=== PATIENT | female | born 1930 | race Asian ===

== ENCOUNTER 2016-11-14 13:13 | Outpatient (CLI) | payer OTHER, BC | END 2016-11-14 19:11 | disposition home or self-care (01) | LOC: SCT 13:13 | PROVIDERS: ATTEND Psychiatry & Neurology Neurology with Special Qualifications in Child Neurology | DX: G23.8 Other specified degenerative diseases of basal ganglia (principal); R41.3 Other amnesia; G31.9 Degenerative disease of nervous system, unspecified; I70.90 Unspecified atherosclerosis | CPT/HCPCS: 70450-TC ==

== ENCOUNTER 2019-03-31 11:25 | Outpatient (CLI) | payer OTHER | END 2019-03-31 20:48 | disposition home or self-care (01) | LOC: SRD 11:25 | PROVIDERS: ATTEND Internal Medicine | DX: R05 Cough (principal); R09.89 Other specified symptoms and signs involving the circulatory and respiratory systems; I70.0 Atherosclerosis of aorta; Z95.0 Presence of cardiac pacemaker | CPT/HCPCS: 71046-TC ==

== ENCOUNTER 2019-06-16 10:28 | Outpatient (CLI) | payer OTHER | END 2019-06-16 19:19 | disposition home or self-care (01) | LOC: SRD 10:28 | PROVIDERS: ATTEND Internal Medicine | DX: M19.032 Primary osteoarthritis, left wrist (principal); M11.232 Other chondrocalcinosis, left wrist ==

== ENCOUNTER 2020-08-22 10:51 | Outpatient (CLI) | payer OTHER | END 2020-08-22 20:09 | disposition home or self-care (01) | LOC: SRD 10:51 | PROVIDERS: ATTEND Internal Medicine | DX: M79.672 Pain in left foot (principal) ==

== ENCOUNTER 2022-02-10 08:35 | Inpatient (IN) | payer OTHER, MEDICARE ==
[~2022-02-10] VITALS: Ht 157.5 cm; Wt 54.4 kg
--- NOTE | 2022-02-10 08:35 | NUR ---
PT PLACED IN BED 1, DR. HENDERSON ASSESSED PT AT BS.
[2022-02-10 08:41] VITALS: BP_SYST 108
[2022-02-10] MEDS ORDERED: cefTRIAXone 1 GM IVPB PREMIX 50 ML IV ONE (08:45)
[2022-02-10] MEDS ORDERED: NACL 0.9% 1,000 ML IV ONE ×3 (08:45→11:00)
--- NOTE | 2022-02-10 08:52 | NUR ---
BIBA WITH C/C OF CHOKING/ASPIRATING DURING FEEDING FROM [facility]. A/O X 1, ON NRB WITH 100% SAT. PRESENTS WITH HDEZ AND WOUND VAC TO SACRUM.
[2022-02-10 09:10] LABS: BASOPHILS % (AUTO) 0.2 % (0.0-2.0); EOSINOPHILS # (AUTO) 0.4 K/uL (0.0-0.4); HEMATOCRIT 27.2 % (36-48); HEMOGLOBIN 8.7 g/dL (12.0-16.0); LYMPHOCYTES # (AUTO) 4.5 K/uL (1.0-5.5); LYMPHOCYTES % (AUTO) 25.2 % (20.5-51.5); MEAN CORPUSCULAR HEMOGLOBIN 29 pg (27-31); MEAN CORPUSCULAR HGB CONC 32 % (32-36); MEAN CORPUSCULAR VOLUME 92 fL (79.0-98.0); MONOCYTES # (AUTO) 0.5 K/uL (0.0-1.0); MONOCYTES % (AUTO) 3.1 % (1.7-9.3); NEUTROPHILS # (AUTO) 12.5 K/uL (1.8-7.7); NEUTROPHILS % (AUTO) 69.5 % (40.0-70.0); PLATELET COUNT (AUTO) 236 K/uL (130-430); RED BLOOD CELL COUNT(AUTO) 2.95 MIL/uL (4.2-6.2); RED CELL DISTRIBUTION WIDTH 19.3 % (9.0-15.0)
[2022-02-10 09:15] LABS: ANION GAP 12 (5-15); CALCIUM 8.5 mg/dL (8.4-11.0); CHLORIDE 109 mmol/L (98-107); CREATININE 1.25 mg/dL (0.55-1.30); GLUCOSE 171 mg/dL (70-99); POTASSIUM 4.7 mmol/L (3.5-5.1); SODIUM SERUM 139 mmol/L (136-145); UREA NITROGEN, BLOOD 39 mg/dL (8-21)
[2022-02-10 09:24] LABS: ALANINE AMINOTRANSFERASE 61 U/L (12-78); ALBUMIN 1.8 g/dL (3.4-4.8); ASPARTATE AMINOTRANSFERASE 31 U/L (10-37); TOTAL BILIRUBIN 0.1 mg/dL (0.0-1.0)
--- NOTE | 2022-02-10 09:31 | NUR ---
pt BIB ambulance due to poss aspiration. Per EMS during feeding in AM pt "coughed" and then had audible rhonchi. Pt suctioned and placed on NC @ 2L w/ oxygen saturations maintaining in mid to high 90's. Pt noted to have penaloza, wound vac to sacrum, bilateral dressings on feet. Pt reports discomfort to buttocks, turned for comfort. Pt currently laying on gurney w/ no obvious s/sx ditress. Son to bedside. Per son pt ambulatory w/ use of cane in August 2021 (showed video).
--- NOTE | 2022-02-10 10:00 | NUR ---
IV fluids infusing- prehospital line flushed well. Urine collected- and lab bhavna bloodwork. Pt aware of plan of care.
[2022-02-10 10:15] LABS: BILIRUBIN,URINE NEGATIVE (NEGATIVE); BLOOD, URINE 2+ (NEGATIVE); CLARITY/URINE SL CLOUDY (CLEAR); COLOR,URINE YELLOW (YELLOW); GLUCOSE,URINE NEGATIVE (NEGATIVE); KETONES,URINE NEGATIVE (NEGATIVE); LEUKOCYTE ESTERASE ,URINE 3+ (NEGATIVE); NITRITE, URINE NEGATIVE (NEGATIVE); PROTEIN URINE 1+ (NEGATIVE); UROBILINOGEN,URINE 0.2 (0.2-1.0)
[2022-02-10 10:19] LABS: FREE T4 (FREE THYROXINE) 1.3 ng/dl (0.8-1.5); THYROID STIMULATING HORMONE 7.86 uIu/mL (0.36-3.74)
--- NOTE | 2022-02-10 10:25 | NUR ---
Pt w/ no obvious s/sx distress, intermittantly sleeping, arousable to voice. Family remains at bedside, updated regarding plan of care. Will continue to monitor.
[2022-02-10 10:42] LABS: BACTERIA,URINE MANY /HPF (None Seen); MUCUS,URINE 1+ /LPF (None Seen); WBC,URINE 20-50 /HPF (0-3)
--- NOTE | 2022-02-10 10:43 | NUR ---
Admit bed requested Patient will be admitted to care of . Admitted to unit. Tele Diagnosis PNA / Sepsis Inpatient (Yes or No) Yes Observation (Yes or No) No Orientation concerns or request close to nursing station (Yes or No) Yes Covid Status Neg On vent or bipap No Isolation requirements None Needs a sitter No From Home (Yes or if No enter name of facility) [facility] Requires Dialysis (Yes or No) No Med Rec Completed (Yes of No) Yes
[2022-02-10] MEDS ORDERED: ALLO100T PO (11:14)
[2022-02-10] MEDS ORDERED: NOR10 PO (11:14)
[2022-02-10] MEDS ORDERED: ASCO120G2 PO (11:17)
[2022-02-10] MEDS ORDERED: ATEN-41 PO (11:17)
[2022-02-10] MEDS ORDERED: LIP20 PO (11:18)
[2022-02-10] MEDS ORDERED: [UNRECOGNIZED DRUG - CODE] (11:19)
[2022-02-10] MEDS ORDERED: DOCU-156 PO (11:20)
[2022-02-10] MEDS ORDERED: LOVI40 SQ (11:21)
[2022-02-10] MEDS ORDERED: LUTE1CAP5 PO (11:22)
[2022-02-10] MEDS ORDERED: ESCI10TA PO (11:22)
[2022-02-10] MEDS ORDERED: ARGI1POW17 PO (11:26)
[2022-02-10] MEDS ORDERED: LEVO100T9 PO (11:27)
[2022-02-10] MEDS ORDERED: LOSA50TA3 PO (11:28)
[2022-02-10] MEDS ORDERED: PANT20TA2 PO (11:30)
[2022-02-10] MEDS ORDERED: MEMA5TAB PO (11:31)
[2022-02-10] MEDS ORDERED: ZINC50TA69 PO (11:32)
--- NOTE | 2022-02-10 12:08 | NUR ---
Patient will be admitted to care of Farida Cisneros RN. Admitted to unit. Will go to room . Belongings list completed. Complete and up to date summary report printed. SBAR report to be given at bedside with opportunity for questions.
[2022-02-10 12:10] VITALS: BP_SYST 152
--- NOTE | 2022-02-10 12:15 | NUR ---
ADMIT NOTES Received patient from ER, awake, screams when touch, but denies any pain. Patient has sacral wound with wound vac from sandra sawyer.Patient is on o2 4L at this time o2 sat at 95%, has audible wheezing. afebrile. will monitor.
--- NOTE | 2022-02-10 12:25 | NUR ---
PULMONARY MD, DR MARIYA JACKSON IS AWARE OF THE CONSULT.
--- NOTE | 2022-02-10 12:27 | NUR ---
CONSULTATION PAGED/CALLED Reason for Consultation: [] SEPSIS Person Who was Notified: [] WAGNER MAYO MT Consulting Physician: [] DR NGUYEN ROOM SERVICE SUPERVISOR FOR DR GAUTHIER Studio Assistant Specialty: [] ID Ordering Physician: [] DR WILL
--- NOTE | 2022-02-10 12:29 | NUR ---
CONSULTATION PAGED/CALLED Reason for Consultation: [] AFIB Person Who was Notified: [] MARIA ESTHER EDWARD MT Consulting Physician: [] DR Aleyda DOSS Services Tech Specialty: [] CARDIO Ordering Physician: [] DR WILL
[2022-02-10 12:30] VITALS: BP_SYST 152
--- NOTE | 2022-02-10 12:30 | NUR ---
MD ROUNDS SEEN BY TEMPERATURE REGULATOR PYROMETER AND INFECTIOUS DOCTOR. DR. NGUYEN SEEN SACRAL WOUND.
[2022-02-10] MEDS ORDERED: ATENOLOL 25 MG TABLET(TENORMIN) PO SCH (12:45)
[2022-02-10] MEDS ORDERED: ENOXAPARIN SODIUM 40 MG/0.4 ML SYRINGE SUBCUT ONE (12:45)
[2022-02-10] MEDS ORDERED: levalbuterol HCL 0.63 MG/3 ML VIAL.NEB INH SCH (13:00)
--- NOTE | 2022-02-10 13:00 | NUR ---
Notes. keep NPO as Per Dr. Lopes ordered and also to have D5NS IVF while NPO. picture taken on the wound.
[2022-02-10] MEDS: D5NS 1,000 ML IV SCH ×2 (13:22→20:57)
[2022-02-10] MEDS: METHYLPREDNISOLONE SOD SUCC 40 MG/ML VIAL IVP SCH ×2 (13:24→20:56)
--- NOTE | 2022-02-10 14:30 | NUR ---
Notes Patient Desat on 4L while asleep, non rebreather applied at this time. will monitor.
--- NOTE | 2022-02-10 14:38 | NUR ---
UPDATED JUAN MATOS PT IS ADMITTED.
[2022-02-10] MEDS: IPRATROPIUM/ALBUTEROL SULFATE 3 ML AMPUL.NEB (DUONEB) INH SCH ×2 (15:56→21:46)
[2022-02-10 16:30] VITALS: BP_SYST 145
--- NOTE | 2022-02-10 16:40 | NUR ---
Notes Patient awake and scream at times. Patient has breathing treatment and she is on o2 4L at now, o2 sat is 95%. Will monitor.
[2022-02-10] MEDS: PIPERACILLIN/TAZO 2.25G/DEX-IS 50 ML IV SCH (17:14)
[2022-02-10] MEDS ORDERED: PIPERACILLIN/TAZO 3.375/DEX-IS 50 ML IV SCH (18:00)
--- NOTE | 2022-02-10 18:15 | NUR ---
wound care-endorse to shift leader to do dressing also and possible to put wound vac.
--- NOTE | 2022-02-10 18:15 | NUR ---
Notes No distress, son at bedside talking to his mom.
[2022-02-10 18:26] VITALS: BP_SYST 145
[2022-02-10] MEDS: DOCUSATE SODIUM 100 MG CAPSULE PO SCH (20:53)
[2022-02-10] MEDS: ATORVASTATIN 20 MG TABLET PO SCH (20:55)
[2022-02-10] MEDS: LOSARTAN POTASSIUM 50 MG TABLET (COZAAR) PO SCH (20:55)
[2022-02-10] MEDS: ASCORBIC ACID 500 MG TABLET PO SCH (20:55)
[2022-02-10] MEDS: MEMANTINE HCL 5 MG TABLET PO SCH (20:55)
[2022-02-10] MEDS: ALLOPURINOL 100 MG TABLET (ZYLOPRIM) PO SCH (20:56)
[2022-02-10 21:00] VITALS: BP_SYST 139
[2022-02-10] MEDS ORDERED: [UNRECOGNIZED DRUG - OTHER] PO SCH (21:00)
[2022-02-10] MEDS ORDERED: NON-FORMULARY MEDICATION (Cranberry Fruit (Cranberry) 425 MG) SCH (21:00)
[2022-02-10] MEDS ORDERED: ESCITALOPRAM OXALATE 10 MG TABLET PO SCH (21:00)
--- NOTE | 2022-02-10 21:12 | NUR ---
REPOSITION & TURNING pillows used for off loading on schedule also kept clean & dry as needed / .
--- NOTE | 2022-02-10 22:28 | NUR ---
RED CONE PLACED @ BEDSIDE - PENDING EVAL / .
[2022-02-11 01:22] VITALS: BP_SYST 121
--- NOTE | 2022-02-11 03:41 | NUR ---
Hourly Rounding chest movement shallow also symmetrical awake on and off skin remains dry also warm / .
[2022-02-11] MEDS: PIPERACILLIN/TAZO 2.25G/DEX-IS 50 ML IV SCH ×5 (03:44→23:59)
--- NOTE | 2022-02-11 05:36 | NUR ---
SWALLOW CONSULTATION PAGED/CALLED Reason for Consultation: SWALLOW EVAL Person Who was Notified: PALOMA BA Consulting Physician: Parts Product Analyst Specialty: Ordering Physician: RENETTA
[2022-02-11] MEDS: IPRATROPIUM/ALBUTEROL SULFATE 3 ML AMPUL.NEB (DUONEB) INH SCH ×5 (06:09→19:21)
[2022-02-11] MEDS: D5NS 1,000 ML IV SCH ×2 (06:27→17:20)
[2022-02-11] MEDS: METHYLPREDNISOLONE SOD SUCC 40 MG/ML VIAL IVP SCH ×3 (06:27→20:16)
[2022-02-11 07:08] LABS: BASOPHILS % (AUTO) 0.1 % (0.0-2.0); HEMATOCRIT 23.9 % (36-48); HEMOGLOBIN 7.8 g/dL (12.0-16.0); LYMPHOCYTES % (AUTO) 7.6 % (20.5-51.5); MEAN CORPUSCULAR HEMOGLOBIN 30 pg (27-31); MEAN CORPUSCULAR HGB CONC 33 % (32-36); MEAN CORPUSCULAR VOLUME 93 fL (79.0-98.0); MONOCYTES # (AUTO) 0.1 K/uL (0.0-1.0); MONOCYTES % (AUTO) 0.7 % (1.7-9.3); NEUTROPHILS # (AUTO) 11.7 K/uL (1.8-7.7); NEUTROPHILS % (AUTO) 91.6 % (40.0-70.0); PLATELET COUNT (AUTO) 174 K/uL (130-430); RED BLOOD CELL COUNT(AUTO) 2.57 MIL/uL (4.2-6.2); RED CELL DISTRIBUTION WIDTH 19.6 % (9.0-15.0); WHITE BLOOD COUNT (AUTO) 12.7 K/uL (4.8-10.8)
--- NOTE | 2022-02-11 07:30 | NUR ---
Report received from ANN Sanders for continuity of care. Patient in stable condition. No distress noted.
[2022-02-11 07:46] VITALS: BP_SYST 150
[2022-02-11 08:29] LABS: ALANINE AMINOTRANSFERASE 54 U/L (12-78); ALBUMIN 1.5 g/dL (3.4-4.8); ANION GAP 10 (5-15); ASPARTATE AMINOTRANSFERASE 25 U/L (10-37); CALCIUM 8.6 mg/dL (8.4-11.0); CHLORIDE 115 mmol/L (98-107); CREATININE 1.02 mg/dL (0.55-1.30); GLUCOSE 190 mg/dL (70-99); POTASSIUM 4.7 mmol/L (3.5-5.1); SODIUM SERUM 144 mmol/L (136-145); TOTAL BILIRUBIN 0.2 mg/dL (0.0-1.0); UREA NITROGEN, BLOOD 32 mg/dL (8-21)
--- NOTE | 2022-02-11 08:45 | NUR ---
Opening note: Report received from ANN Sanders for continuity of care. Patient stable condition. No distress noted. Will continue to monitor.
[2022-02-11] MEDS ORDERED: ZINC 220 MG PO SCH (09:00)
[2022-02-11] MEDS ORDERED: ZEAXANTHIN PO SCH (09:00)
[2022-02-11] MEDS ORDERED: NON-FORMULARY MEDICATION (Pantoprazole (Protonix) 40 MG) PO SCH (09:00)
[2022-02-11] MEDS ORDERED: LUTEIN PO SCH (09:00)
[2022-02-11] MEDS: ASCORBIC ACID 500 MG TABLET PO SCH ×2 (11:33→20:16)
[2022-02-11] MEDS: LEVOTHYROXINE SODIUM 0.1 MG TABLET PO SCH (11:33)
[2022-02-11] MEDS: LOSARTAN POTASSIUM 50 MG TABLET (COZAAR) PO SCH ×2 (11:34→20:17)
[2022-02-11] MEDS: amLODIPine BESYLATE 10 MG TABLET PO SCH (11:34)
[2022-02-11] MEDS: MEMANTINE HCL 5 MG TABLET PO SCH ×2 (11:34→20:16)
[2022-02-11] MEDS: CITALOPRAM HYDROBROMIDE 20 MG TABLET PO SCH (11:35)
[2022-02-11] MEDS: ALLOPURINOL 100 MG TABLET (ZYLOPRIM) PO SCH ×2 (11:35→20:17)
[2022-02-11] MEDS: DOCUSATE SODIUM 100 MG CAPSULE PO SCH ×2 (11:35→20:16)
[2022-02-11] MEDS: PANTOPRAZOLE SODIUM 40 MG TAB PO SCH (11:35)
[2022-02-11] MEDS: ENOXAPARIN SODIUM 40 MG/0.4 ML SYRINGE SUBCUT SCH (11:37)
[2022-02-11] MEDS: ATENOLOL 25 MG TABLET(TENORMIN) PO SCH (11:37)
[2022-02-11 12:47] VITALS: BP_SYST 138
--- NOTE | 2022-02-11 14:29 | NUR ---
NOTES: called Anisha for air mattress T 500 per Mark Anthony, spoke to cristian confirm no. [id number] .nurse Ronny aware
--- NOTE | 2022-02-11 16:28 | NUR ---
ST EVALUATION COMPLETED. ST TX NOT INDICATED AT THIS TIME. RECOMMEND PO DIET OF PUREE AND THIN LIQUIDS. RECOMMEND 1:1 SUPERVISION AND FULL ASPIRATION PRECAUTIONS.
[2022-02-11 16:54] VITALS: BP_SYST 130
[2022-02-11] MEDS: INSULIN REGULAR, HUMAN 100 UNITS/ML, 10 ML VIAL (humuLIN R) SUBCUT PRN (17:29)
[2022-02-11 18:54] VITALS: BP_SYST 132
--- NOTE | 2022-02-11 19:37 | NUR ---
Patient stable throughout the shift. Patient placed on air loss mattress. ST swallow eval completed. Patient able to tolerate dinner.
--- NOTE | 2022-02-11 19:38 | NUR ---
Report given to ANN Lynn for continuity of care. Patient stable condition. Vitals stable.
[2022-02-11 20:00] VITALS: BP_SYST 131
[2022-02-11] MEDS: ATORVASTATIN 20 MG TABLET PO SCH (20:16)
--- NOTE | 2022-02-11 22:27 | NUR ---
Patient in bed. No acute distress noted. Turned repositioned q2. Will continue to monitor.
[2022-02-12] VITALS: BP_SYST 131
[2022-02-12] MEDS: IPRATROPIUM/ALBUTEROL SULFATE 3 ML AMPUL.NEB (DUONEB) INH SCH ×4 (04:26→19:40)
[2022-02-12] MEDS: PIPERACILLIN/TAZO 2.25G/DEX-IS 50 ML IV SCH (04:56)
[2022-02-12] MEDS: METHYLPREDNISOLONE SOD SUCC 40 MG/ML VIAL IVP SCH ×3 (04:56→22:13)
[2022-02-12] MEDS: D5NS 1,000 ML IV SCH ×2 (04:57→16:32)
[2022-02-12] MEDS: LEVOTHYROXINE SODIUM 0.1 MG TABLET PO SCH (04:57)
[2022-02-12] MEDS: LEVOTHYROXINE SODIUM 0.05 MG TABLET PO SCH (04:57)
[2022-02-12 06:05] LABS: BASOPHILS % (AUTO) 0.1 % (0.0-2.0); HEMATOCRIT 22.5 % (36-48); HEMOGLOBIN 7.5 g/dL (12.0-16.0); LYMPHOCYTES # (AUTO) 0.9 K/uL (1.0-5.5); LYMPHOCYTES % (AUTO) 9.5 % (20.5-51.5); MEAN CORPUSCULAR HEMOGLOBIN 30 pg (27-31); MEAN CORPUSCULAR HGB CONC 33 % (32-36); MEAN CORPUSCULAR VOLUME 91 fL (79.0-98.0); MONOCYTES # (AUTO) 0.4 K/uL (0.0-1.0); MONOCYTES % (AUTO) 3.7 % (1.7-9.3); NEUTROPHILS # (AUTO) 8.2 K/uL (1.8-7.7); NEUTROPHILS % (AUTO) 86.7 % (40.0-70.0); PLATELET COUNT (AUTO) 190 K/uL (130-430); RED BLOOD CELL COUNT(AUTO) 2.48 MIL/uL (4.2-6.2); RED CELL DISTRIBUTION WIDTH 19.4 % (9.0-15.0); WHITE BLOOD COUNT (AUTO) 9.5 K/uL (4.8-10.8)
[2022-02-12 07:12] LABS: AMYLASE 19 U/L (0-100); ANION GAP 9 (5-15); CALCIUM 8.4 mg/dL (8.4-11.0); CHLORIDE 115 mmol/L (98-107); CREATININE 0.94 mg/dL (0.55-1.30); GLUCOSE 150 mg/dL (70-99); SODIUM SERUM 142 mmol/L (136-145); UREA NITROGEN, BLOOD 34 mg/dL (8-21)
--- NOTE | 2022-02-12 07:27 | NUR ---
Report received from ANN Lynn for continuity of care. Patient in stable condition. No active distress noted. Patient resting on specialty bed.
[2022-02-12 09:02] LABS: TOTAL IRON BIND. CAPACITY 121 ug/dL (250-450)
[2022-02-12] MEDS: MEMANTINE HCL 5 MG TABLET PO SCH ×2 (09:52→21:46)
[2022-02-12] MEDS: ASCORBIC ACID 500 MG TABLET PO SCH ×2 (09:55→21:46)
[2022-02-12] MEDS: amLODIPine BESYLATE 10 MG TABLET PO SCH (09:55)
[2022-02-12] MEDS: ALLOPURINOL 100 MG TABLET (ZYLOPRIM) PO SCH ×2 (09:56→21:46)
[2022-02-12] MEDS: DOCUSATE SODIUM 100 MG CAPSULE PO SCH ×2 (09:56→21:46)
[2022-02-12] MEDS: LOSARTAN POTASSIUM 50 MG TABLET (COZAAR) PO SCH ×2 (09:56→21:46)
[2022-02-12] MEDS: CITALOPRAM HYDROBROMIDE 20 MG TABLET PO SCH (09:56)
[2022-02-12] MEDS: PANTOPRAZOLE SODIUM 40 MG TAB PO SCH (09:56)
[2022-02-12] MEDS: ENOXAPARIN SODIUM 40 MG/0.4 ML SYRINGE SUBCUT SCH (09:57)
[2022-02-12] MEDS: ATENOLOL 25 MG TABLET(TENORMIN) PO SCH (09:57)
[2022-02-12 12:30] VITALS: BP_SYST 109
[2022-02-12] MEDS: INSULIN REGULAR, HUMAN 100 UNITS/ML, 10 ML VIAL (humuLIN R) SUBCUT PRN ×2 (13:06→16:30)
[2022-02-12 16:30] VITALS: BP_SYST 138
--- NOTE | 2022-02-12 19:01 | NUR ---
Nutrition Assessment Nutritional Screening High Risk Screening Admitting Diagnosis Sepsis Reviewed Pertinent Medical/Surgical Hx Medical Record Patient Medical History Comment: per EMR: 89yF from [facility] with pmh CVA, HTN, HLD, gout, depression, dementia, and hyperthyroidism Subjective Information The patient presented to ED from SNF with c/o SOB; patient had an aspiration episode, choking on breakfast. In ED, assessment showed patient positive for sepsis and UTI. S/p ST evaluation: ST rec puree with thin liquids with 1:1 supervision during all meals. Per RD chart review: PO intake 50% x 2 meals; 2 BM noted 02/12 with no GI symptoms. RD spoke with patient bedside eating dinner. Pt endorses great appetite and states she is enjoying the food and Ensure ONS. Patient denied N/V/D/C. Current Diet Order/Nutrition Support: Pureed Diet with Thin Liquids (1:1 Supervision) Patient/Significant Other Able To Verbalize Education Provided Not Indicated Pertinent Medications levothyroxine, insulin, zinc, VIT C, protonix, lovenox, colace, lipitor Pertinent Labs RBC 2.4L, H/H 7.5/22.5L, Cl 115H, Glu 150H, POC 164H Height (Feet) 5 feet Height (Inches) 2.00 inches Weight (Pounds) 120 pounds Weight (Calculated Kilograms) 54.910741 kilograms Patient Weight 54.431 kg Body Mass Index 21.95 kg/m2 %IBW [address] [place]/Adjusted Body Weight 110lb/ 50kg Recent Weight Change Unable to Verify Weight Status Appropriate Gastrointestinal Symptoms None Last BM Feb 12, 2022 Difficulty With: Chewing, Swallowing Food Allergies Unable to Verify Usual Diet At Home Unable to Verify Skin Integrity Comment: Jovanny 14 : R + L heel erythema, R-foot multiple dry scabs, sacrum wound Current % PO Fair (50-74%) Estimated Energy Expenditure (kcals/day) 5857-3373 (30-35 kcal/kg d/t sepsis, wounds) Estimated Protein Required (g/day) 81-108 (1.5-2 g/kg d/t sepsis, wounds) Estimated Fluid Required (l/day) 1.6-1.9 (1mL/kcal) Problem/Etiology/Signs/Symptoms * Increased energy and protein needs r/t sepsis, wound healing AEB 30-35 kcal/kg est energy needs; 1.5-2 g/kg est protein needs * Swallowing difficulty r/t dysphagia AEB aspiration episode at [facility] 02/10; ST evaluationl; diet order = puree textures w/ TL Expected Outcomes/Goals PO intake provides >85% of est nutrient needs, nutrition-related labs trending WNL, improvements in skin integrity, wt stable within 1-2lbs, BM q 1-3 days Dietitian Recommendations * Continue pureed diet with thin liquids, per ST * Provide 1:1 supervision during all meals * Rec Nils BID for wounds, when sepsis resolves Follow Up High Risk: F/U in 2-3days Follow Up By Feb 15, 2022 Alert Not Indicated Body Fat Depletion (Non-Severe) Mild Depletion Fluid Accumulation (N/A) N\A Reduced Fire Hydrant Operator Strength (Non-Severe) Moderate N/A Is there a minimum of two criteria selected? No Addendum: 02/12/22 at [address] Amended: Links added.
--- NOTE | 2022-02-12 19:06 | NUR ---
Dietitian Recommendations * Continue pureed diet with thin liquids, per ST * Provide 1:1 supervision during all meals * Rec Nils BID for wounds, when sepsis resolves Please refer to Nutrition Assessment for details, thanks! CC, MPH, RDN
--- NOTE | 2022-02-12 19:30 | NUR ---
Report given to STEFANIE Swartz for continuity of care. Patient in stable condition.
--- NOTE | 2022-02-12 19:45 | NUR ---
OPENING NOTE PT IS SEMI FOWLERS IN BED WITH EYES CLOSED. NO APPARENT DISTRESS NOTED AT THIS TIME. BED IN LOWEST POSITION WITH FALL AND SAFETY PRECAUTIONS IN PLACE. Addendum: 02/13/22 at 0138 by Maxime Jimenez LVN KETTY DRAINING TO GRAVITY
[2022-02-12 20:00] VITALS: BP_SYST 120
[2022-02-12] MEDS: ATORVASTATIN 20 MG TABLET PO SCH (21:46)
[2022-02-13] MEDS: IPRATROPIUM/ALBUTEROL SULFATE 3 ML AMPUL.NEB (DUONEB) INH SCH ×7 (00:37→23:03)
[2022-02-13] MEDS: D5NS 1,000 ML IV SCH ×3 (00:45→20:45)
[2022-02-13 01:13] VITALS: BP_SYST 143
[2022-02-13] MEDS: METHYLPREDNISOLONE SOD SUCC 40 MG/ML VIAL IVP SCH ×3 (05:55→21:29)
[2022-02-13] MEDS: LEVOTHYROXINE SODIUM 0.05 MG TABLET PO SCH (06:24)
--- NOTE | 2022-02-13 06:54 | NUR ---
CLOSING NOTE PT IS SEMI FOWLERS IN BED WITH EYES CLOSED. NO SIGNS OF APPARENT DISTRESS NOTED AT THIS TIME. BED IN LOWEST POSITION WITH FALL AND SAFETY PRECAUTIONS IN PLACE. HDEZ DRAINING TO GRAVITY
[2022-02-13 07:28] VITALS: BP_SYST 134
--- NOTE | 2022-02-13 07:34 | NUR ---
Report received from STEFANIE Swartz for continuity of care. Patient stable condition.
--- NOTE | 2022-02-13 07:34 | NUR ---
Report received from STEFANIE Swartz for continuity of care. Patient stable condition.
[2022-02-13] MEDS: DOCUSATE SODIUM 100 MG CAPSULE PO SCH ×3 (09:00→21:26)
[2022-02-13] MEDS: amLODIPine BESYLATE 10 MG TABLET PO SCH (09:47)
[2022-02-13] MEDS: PANTOPRAZOLE SODIUM 40 MG TAB PO SCH (09:47)
[2022-02-13] MEDS: LEVOTHYROXINE SODIUM 0.1 MG TABLET PO SCH (09:48)
[2022-02-13] MEDS: CITALOPRAM HYDROBROMIDE 20 MG TABLET PO SCH (09:48)
[2022-02-13] MEDS: ASCORBIC ACID 500 MG TABLET PO SCH ×2 (09:48→21:27)
[2022-02-13] MEDS: ATENOLOL 25 MG TABLET(TENORMIN) PO SCH (09:48)
[2022-02-13] MEDS: MEMANTINE HCL 5 MG TABLET PO SCH ×2 (09:49→21:27)
[2022-02-13] MEDS: ALLOPURINOL 100 MG TABLET (ZYLOPRIM) PO SCH ×2 (09:49→21:27)
[2022-02-13] MEDS: LOSARTAN POTASSIUM 50 MG TABLET (COZAAR) PO SCH ×2 (09:49→21:26)
[2022-02-13] MEDS: ENOXAPARIN SODIUM 40 MG/0.4 ML SYRINGE SUBCUT SCH (09:50)
[2022-02-13 10:07] LABS: FOLATE (FOLIC ACID) 17.8 ng/mL (>3.0)
[2022-02-13 11:01] VITALS: BP_SYST 136
[2022-02-13] MEDS: INSULIN REGULAR, HUMAN 100 UNITS/ML, 10 ML VIAL (humuLIN R) SUBCUT PRN (11:34)
[2022-02-13 12:42] VITALS: BP_SYST 125
--- NOTE | 2022-02-13 15:37 | NUR ---
WOUND EVALUATION: Wound Consult received from Dr. Rodriguez. Thank you, , for the consult. Patient received in a [place] Bed with a mattress, awake, alert, and oriented. Patient is unable to turn independently. Jovanny Score is a . Past Medical History: Recent Labs: Intrinsic factors that delay wound healing: Extrinsic factors that delay wound healing: Decreased mobility. Microbiology: Wound Assessment: , present on admission. Wound bed is . No odor, no drainage. sridevi-wound intact. Measures . Recommend: Cleanse wound with normal saline. Place moisture barrier cream onto sridevi-wound. Cover with foam dressing. Perform wound care daily, and as needed for dressing soiling or dislodgement. Also recommend: Reposition patient every 2 hours with pillow support and off-load pressure areas with pillows for pressure re-distribution. Offload, elevate and float bilateral heels with pillows. Perform skin care and monitor skin integrity Q shift. Use moisture barrier cream on buttocks and other moisture susceptible areas QID and as needed for soiling. Place patient on a low air-loss mattress. Addendum: 02/13/22 at 1617 by Mark Anthony Jha RN Error. Accidentally entered note before completion. Please refer to new order note at 1553.
--- NOTE | 2022-02-13 15:53 | NUR ---
WOUND EVALUATION: Wound Consult received from Dr. Rodriguez. Thank you, Dr. Rodriguez, for the consult. Patient received in a [place] Bed with an IsoFlex PARESH mattress, awake, alert, confused. Patient is unable to turn in bed independently. Jovanny Score is a 13. Past Medical History: CVA, Hypertension, Hyperlipidemia, Hypothyroidism, Depression, Dementia, Gout. Recent Labs: WBC 9.5, RBC 2.48, hemoglobin 7.5, hematocrit 22.5, BUN 34, creatinine 0.94, glucose 150, POC glucose 185, albumin 1.5. Microbiology: Blood culture results x2 in progress. MRSA screen results negative. Urine culture results positive for Klebsiella pneumoniae and Morganella Morganii. Intrinsic factors that delay wound healing: Severe Hypoalbuminemia, Hyperglycemia. Extrinsic factors that delay wound healing: Decreased mobility. Wound Assessment: 1. Sacral area: Stage IV pressure ulcer, present on admission. Wound bed has 35% pink tissue, 30% dull red tissue, 25% yellow tissue, 10% black slough. No odor, scant sanguineous drainage. Periwound has 100% undermining (1.5 cm at 12 o'clock; 0.5 cm at 3 o'clock; 0.5 cm at 6 o'clock; 0.6 cm at 9 o'clock). Bone is visible. Measures 7.2 cm x 5.0 cm x 1.2 cm.. Recommend: Cleanse wound with normal saline. Apply moisture barrier cream to sridevi-wound. Apply Venelex to wound bed. Pack wound with 1/2 inch iodoform packing strip. Cover with Sacral foam dressing. Perform wound care daily, and as needed for dressing soiling or dislodgement. 2. Left Posterior Heel: Scar tissue and brown scaly skin, present on admission. 3. Right Posterior Heel: Scar tissue and brown scaly skin, present on admission. Recommend: Cover sites with foam dressings. Keep feet inside foot cradles. Elevate, offload and float bilateral heels with 1 pillow lengthwise under each extremity at all times. Do not allow heels or other portion of feet to touch bed or other surfaces. 4. Left Medial First Metatarsal head: Area of brown discoloration with broken skin, present on admission. No odor, no drainage. Periwound intact. Site measures 1.2 cm x 1.7 cm. 5. Right Medial First Metatarsal head: Chronic wound of unknown etiology, present on admission. Wound bed has 100% yellow eschar. Periwound intact, with scar tissue. No odor, no drainage. Wound measures 0.5 cm x 0.4 cm. 6. Right Medial Foot: Scar tissue, present on admission. Recommend: Cover sites with foam dressings. Keep feet inside foot cradles. Elevate, offload and float bilateral heels with 1 pillow lengthwise under each extremity at all times. Do not allow heels or other portion of feet to touch bed or other surfaces. Also recommend: Reposition patient side to side only every 2 hours with pillow support and off-load pressure areas with pillows for pressure re-distribution. Offload, elevate and float bilateral heels with 1 pillow lengthwise under each extremity at all times. Perform skin care and monitor skin integrity Q shift. Use moisture barrier cream on buttocks and other moisture susceptible areas QID and as needed for soiling. Place patient on a P500 low air-loss mattress.
[2022-02-13 16:11] VITALS: BP_SYST 144
[2022-02-13] MEDS ORDERED: ACETAMINOPHEN 325 MG TABLET PO PRN (18:45)
[2022-02-13 20:00] VITALS: BP_SYST 138
--- NOTE | 2022-02-13 20:12 | NUR ---
rEPORT GIVEN TO JESSICA FOR CONTINUITY OF CARE. pATIENT STABLE.
[2022-02-13] MEDS: ATORVASTATIN 20 MG TABLET PO SCH (21:26)
[2022-02-14 01:59] VITALS: BP_SYST 129
[2022-02-14] MEDS: IPRATROPIUM/ALBUTEROL SULFATE 3 ML AMPUL.NEB (DUONEB) INH SCH ×4 (03:25→15:22)
[2022-02-14] MEDS: METHYLPREDNISOLONE SOD SUCC 40 MG/ML VIAL IVP SCH ×2 (06:26→14:21)
[2022-02-14] MEDS: LEVOTHYROXINE SODIUM 0.05 MG TABLET PO SCH (06:26)
[2022-02-14] MEDS: D5NS 1,000 ML IV SCH ×3 (06:45→22:37)
--- NOTE | 2022-02-14 07:15 | NUR ---
OPENING NOTE: REPORT RC'VD FROM OUTGOING NOC RN, ALL CARES ASSUMED.
[2022-02-14] MEDS: ASCORBIC ACID 500 MG TABLET PO SCH ×2 (08:57→21:43)
[2022-02-14] MEDS: CITALOPRAM HYDROBROMIDE 20 MG TABLET PO SCH (08:57)
[2022-02-14] MEDS: DOCUSATE SODIUM 100 MG CAPSULE PO SCH ×2 (08:57→21:43)
[2022-02-14] MEDS: LEVOTHYROXINE SODIUM 0.1 MG TABLET PO SCH (08:58)
[2022-02-14] MEDS: ALLOPURINOL 100 MG TABLET (ZYLOPRIM) PO SCH ×2 (08:58→21:43)
[2022-02-14] MEDS: LOSARTAN POTASSIUM 50 MG TABLET (COZAAR) PO SCH ×2 (08:58→21:43)
[2022-02-14] MEDS: amLODIPine BESYLATE 10 MG TABLET PO SCH (08:58)
[2022-02-14] MEDS: MEMANTINE HCL 5 MG TABLET PO SCH ×2 (08:58→21:42)
[2022-02-14] MEDS: PANTOPRAZOLE SODIUM 40 MG TAB PO SCH (08:58)
[2022-02-14] MEDS: ATENOLOL 25 MG TABLET(TENORMIN) PO SCH (08:59)
[2022-02-14] MEDS: ENOXAPARIN SODIUM 40 MG/0.4 ML SYRINGE SUBCUT SCH (08:59)
[2022-02-14] MEDS: BALSAM PERU/CASTOR OIL 56.7 GM OINT...G. TP SCH (09:01)
--- NOTE | 2022-02-14 10:00 | NUR ---
Patient repositioned with pillow support, heels floating. Bed low and locked for safety, call light in reach
--- NOTE | 2022-02-14 12:00 | NUR ---
RN ROUNDS Patient repositiPatient repositioned with pillow support, heels floating. Bed low and locked for safety, call light in reach.
[2022-02-14 12:14] VITALS: BP_SYST 132
--- NOTE | 2022-02-14 12:30 | NUR ---
ASSISTED PATIENT WITH PO LUNCH INTAKE AT BEDSIDE, PATIENT CONSUMED 75%
--- NOTE | 2022-02-14 14:00 | NUR ---
RN ROUNDS - WOUND CARE COMPLETED Patient repositiPatient repositioned with pillow support, heels floating. Bed low and locked for safety, call light in reach.
[2022-02-14 16:00] VITALS: BP_SYST 129
--- NOTE | 2022-02-14 16:19 | NUR ---
HDEZ CATHETER CARE PROVIDED WITH CHG WIPES, PATIENT TOLERATED WELL. ARACELI-CARE COMPLETED. HDEZ BAG BELOW LEVEL OF BLADDER DRAINING CLEAR YELLOW URINE.
--- NOTE | 2022-02-14 18:08 | NUR ---
DINNER TRAY TAKEN TO BEDSIDE, ASSISTED PATIENT TO SITTING UPRIGHT POSITION FOR ASPIRATION PRECAUTIONS, BED LOW AND LOCKED FOR SAFETY.
[2022-02-14 20:00] VITALS: BP_SYST 137
[2022-02-14] MEDS: ATORVASTATIN 20 MG TABLET PO SCH (21:42)
[2022-02-15] MEDS: INSULIN REGULAR, HUMAN 100 UNITS/ML, 10 ML VIAL (humuLIN R) SUBCUT PRN (00:18)
[2022-02-15 00:53] VITALS: BP_SYST 147
[2022-02-15] MEDS: IPRATROPIUM/ALBUTEROL SULFATE 3 ML AMPUL.NEB (DUONEB) INH SCH ×6 (01:51→15:00)
[2022-02-15] MEDS: LEVOTHYROXINE SODIUM 0.05 MG TABLET PO SCH (05:51)
[2022-02-15 06:22] LABS: BASOPHILS % (AUTO) 0.1 % (0.0-2.0); HEMATOCRIT 24.6 % (36-48); HEMOGLOBIN 8.2 g/dL (12.0-16.0); LYMPHOCYTES # (AUTO) 1.1 K/uL (1.0-5.5); LYMPHOCYTES % (AUTO) 11.1 % (20.5-51.5); MEAN CORPUSCULAR HEMOGLOBIN 31 pg (27-31); MEAN CORPUSCULAR HGB CONC 33 % (32-36); MEAN CORPUSCULAR VOLUME 92 fL (79.0-98.0); MONOCYTES # (AUTO) 0.7 K/uL (0.0-1.0); MONOCYTES % (AUTO) 6.6 % (1.7-9.3); NEUTROPHILS # (AUTO) 8.1 K/uL (1.8-7.7); NEUTROPHILS % (AUTO) 82.2 % (40.0-70.0); PLATELET COUNT (AUTO) 212 K/uL (130-430); RED BLOOD CELL COUNT(AUTO) 2.68 MIL/uL (4.2-6.2); WHITE BLOOD COUNT (AUTO) 9.9 K/uL (4.8-10.8)
[2022-02-15 07:46] LABS: ANION GAP 10 (5-15); CALCIUM 7.7 mg/dL (8.4-11.0); CHLORIDE 114 mmol/L (98-107); CREATININE 0.84 mg/dL (0.55-1.30); GLUCOSE 99 mg/dL (70-99); POTASSIUM 4.1 mmol/L (3.5-5.1); SODIUM SERUM 144 mmol/L (136-145); UREA NITROGEN, BLOOD 45 mg/dL (8-21)
[2022-02-15 08:00] VITALS: BP_SYST 136
[2022-02-15] MEDS: CITALOPRAM HYDROBROMIDE 20 MG TABLET PO SCH (08:57)
[2022-02-15] MEDS: PANTOPRAZOLE SODIUM 40 MG TAB PO SCH (08:57)
[2022-02-15] MEDS: DOCUSATE SODIUM 100 MG CAPSULE PO SCH (08:57)
[2022-02-15] MEDS: ENOXAPARIN SODIUM 40 MG/0.4 ML SYRINGE SUBCUT SCH (08:57)
[2022-02-15] MEDS: amLODIPine BESYLATE 10 MG TABLET PO SCH (08:58)
[2022-02-15] MEDS: ASCORBIC ACID 500 MG TABLET PO SCH (08:58)
[2022-02-15] MEDS: ATENOLOL 25 MG TABLET(TENORMIN) PO SCH (08:58)
[2022-02-15] MEDS: MEMANTINE HCL 5 MG TABLET PO SCH (08:58)
[2022-02-15] MEDS: ALLOPURINOL 100 MG TABLET (ZYLOPRIM) PO SCH (08:59)
[2022-02-15] MEDS: LEVOTHYROXINE SODIUM 0.1 MG TABLET PO SCH (08:59)
[2022-02-15] MEDS: LOSARTAN POTASSIUM 50 MG TABLET (COZAAR) PO SCH (08:59)
[2022-02-15] MEDS ORDERED: predniSONE 10 MG TABLET PO SCH (09:00)
[2022-02-15] MEDS: BALSAM PERU/CASTOR OIL 56.7 GM OINT...G. TP SCH (09:00)
--- NOTE | 2022-02-15 10:24 | NUR ---
Discharge Planning: DCP faxed pt referral to [facility] [phone] DCP to follow up Addendum: 02/15/22 at 1246 by Ainsley Darden DP DCP arrange transport with [facility] [phone] BLS 5:30pm to [facility] [phone] 11B. DCP made CM and nurse aware. Patient packet taken to nurse station.
[2022-02-15 10:47] LABS: TOTAL IRON BIND. CAPACITY 167 ug/dL (250-450)
[2022-02-15 11:25] LABS: PROTHROMBIN TIME 10.6 SECS (9.5-12.5)
[2022-02-15 12:03] VITALS: BP_SYST 151
[2022-02-15] MEDS: D5NS 1,000 ML IV SCH (12:45)
[2022-02-15 14:59] VITALS: BP_SYST 127
[2022-02-15 16:35] VITALS: BP_SYST 153
[2022-02-15] MEDS ORDERED: APIX2.5T PO (16:42)
[2022-02-15] MEDS ORDERED: PRED10TA PO (16:43)
[2022-02-15] MEDS ORDERED: ROCPM1 IV (16:44)
[2022-02-16] MEDS ORDERED: APIXABAN 2.5 MG TABLET PO SCH (09:00)
== END 2022-02-15 18:04 | DRG 871 ==
LOC: SED 08:35 → STU 10:33 → SMU 02-14 09:12
PROVIDERS: ADMIT Internal Medicine; ATTEND Internal Medicine
PROC: 0T9B70Z Drainage of Bladder with Drainage Device, Via Natural or Artificial Opening (ICD-10-PCS; principal; 2022-02-10)
PROC: 2W55X6Z Removal of Pressure Dressing on Back (ICD-10-PCS; 2022-02-10)
DX: A41.9 Sepsis, unspecified organism (principal); J69.0 Pneumonitis due to inhalation of food and vomit; L89.154 Pressure ulcer of sacral region, stage 4; N39.0 Urinary tract infection, site not specified; N17.9 Acute kidney failure, unspecified; E46 Unspecified protein-calorie malnutrition; D64.9 Anemia, unspecified; E03.9 Hypothyroidism, unspecified; E78.5 Hyperlipidemia, unspecified; F03.90 Unspecified dementia, unspecified severity, without behavioral disturbance, psychotic disturbance, mood disturbance, and anxiety; F32.A Depression, unspecified; I48.0 Paroxysmal atrial fibrillation; J84.10 Pulmonary fibrosis, unspecified; Z20.822 Contact with and (suspected) exposure to COVID-19; I11.9 Hypertensive heart disease without heart failure; B96.1 Klebsiella pneumoniae [K. pneumoniae] as the cause of diseases classified elsewhere; I49.5 Sick sinus syndrome; Z86.73 Personal history of transient ischemic attack (TIA), and cerebral infarction without residual deficits; Z95.0 Presence of cardiac pacemaker; Z79.899 Other long term (current) drug therapy
CPT/HCPCS: 36415; 36600; 71045; 80048; 80053; 81000; 82150; 82607; 82728; 82746; 82803-TC; 82962; 83540; 83550; 83605; 83735; 84439; 84443; 84484; 85025; 85610-TC; 85730-TC; 87040; 87081; 87086; 92610-GN; 94640; 94760; 96374; 99291; G0378; J0696; J1030; J1650; J1815; J2543; J7060; J7512

== ENCOUNTER 2022-03-26 13:01 | Inpatient (IN) | payer OTHER, MEDICARE ==
[~2022-03-26] VITALS: Ht 149.9 cm; Wt 50.8 kg
[~2022-03-26 13:01] MED LIST: ALLO100T PO; APIX2.5T PO; ARGI1POW17 PO; ASCO120G2 PO; ATEN-41 PO; DOCU-156 PO; ESCI10TA PO; LEVO100T9 PO; LIP20 PO; LOSA50TA3 PO; LUTE1CAP5 PO; MEMA5TAB PO; NOR10 PO; PANT20TA2 PO; PRED10TA PO; ROCPM1 IV; ZINC50TA69 PO; [UNRECOGNIZED DRUG - CODE]
[2022-03-26 13:07] VITALS: BP_SYST 121
[2022-03-26] MEDS ORDERED: NS 1000 ML IV.SOLN IV ONE (13:30)
[2022-03-26] MEDS ORDERED: ONDANSETRON HCL 4 MG/2 ML VIAL IVP ONE (13:45)
[2022-03-26] MEDS ORDERED: MORPHINE 4 MG INJ. 4 MG/ML VIAL IVP ONE (13:45)
[2022-03-26] MEDS ORDERED: NACL 0.9% 1,000 ML IV ONE ×2 (13:45→15:45)
[2022-03-26 14:33] LABS: BASOPHILS # (AUTO) 0.2 K/uL (0.0-0.2); BASOPHILS % (AUTO) 1.3 % (0.0-2.0); EOSINOPHILS # (AUTO) 0.1 K/uL (0.0-0.4); EOSINOPHILS % (AUTO) 0.9 % (0.0-4.0); HEMATOCRIT 28.1 % (36-48); LYMPHOCYTES % (AUTO) 8.6 % (20.5-51.5); MEAN CORPUSCULAR VOLUME 91 fL (79.0-98.0); MONOCYTES # (AUTO) 0.4 K/uL (0.0-1.0); MONOCYTES % (AUTO) 3.7 % (1.7-9.3); NEUTROPHILS # (AUTO) 9.9 K/uL (1.8-7.7); NEUTROPHILS % (AUTO) 85.5 % (40.0-70.0); PLATELET COUNT (AUTO) 191 K/uL (130-430); RED BLOOD CELL COUNT(AUTO) 3.08 MIL/uL (4.2-6.2); RED CELL DISTRIBUTION WIDTH 21.5 % (9.0-15.0); WHITE BLOOD COUNT (AUTO) 11.6 K/uL (4.8-10.8)
[2022-03-26 14:47] LABS: BILIRUBIN,URINE NEGATIVE (NEGATIVE); BLOOD, URINE 1+ (NEGATIVE); CLARITY/URINE SL CLOUDY (CLEAR); COLOR,URINE YELLOW (YELLOW); GLUCOSE,URINE NEGATIVE (NEGATIVE); KETONES,URINE NEGATIVE (NEGATIVE); LEUKOCYTE ESTERASE ,URINE 3+ (NEGATIVE); NITRITE, URINE NEGATIVE (NEGATIVE); PH,URINE 6.5 (5.0-8.0); PROTEIN URINE NEGATIVE (NEGATIVE); UROBILINOGEN,URINE 0.2 (0.2-1.0)
[2022-03-26 14:59] LABS: ANION GAP 12 (5-15); CALCIUM 9.5 mg/dL (8.4-11.0); CHLORIDE 111 mmol/L (98-107); CREATININE 1.47 mg/dL (0.55-1.30); GLUCOSE 134 mg/dL (70-99)
[2022-03-26 15:08] LABS: INR 1.1 (0.8-1.2)
[2022-03-26 15:17] LABS: ALANINE AMINOTRANSFERASE 76 U/L (12-78); ALBUMIN 1.6 g/dL (3.4-4.8); ASPARTATE AMINOTRANSFERASE 27 U/L (10-37); FREE T4 (FREE THYROXINE) 0.7 ng/dl (0.8-1.5); THYROID STIMULATING HORMONE 6.02 uIu/mL (0.36-3.74); TOTAL BILIRUBIN 0.2 mg/dL (0.0-1.0)
[2022-03-26 15:21] LABS: ALCOHOL, BLOOD < 3 mg/dL (<10); POTASSIUM 5.8 mmol/L (3.5-5.1)
[2022-03-26 15:22] LABS: UREA NITROGEN, BLOOD 127 mg/dL (8-21)
[2022-03-26 15:39] LABS: BARBITURATE, URINE NEGATIVE (NEG <=200); BENZODIAZEPINE, URINE NEGATIVE (NEG <=150); CANNABINOID, URINE NEGATIVE (NEG <=50); COCAINE, URINE NEGATIVE (NEG <=150); METHAMPHETAMINES SCREEN,URINE NEGATIVE (NEG <=500); OPIATE, URINE POSITIVE (NEG <=100); PHENCYCLIDINE SCREEN,URINE NEGATIVE (NEG <=25); UR TRICYCLIC ANTIDEPRESSANTS NEGATIVE (NEG <=300); URINE AMPHETAMINE NEGATIVE (NEG <=500); URINE METHADONE NEGATIVE (NEG <=200); URINE OXYCODONE SCREEN NEGATIVE (NEG <=100); URINE PROPOXYPHENE SCREEN NEGATIVE (NEG <=300)
[2022-03-26] MEDS ORDERED: ESCI20TA PO (15:40)
[2022-03-26 15:43] LABS: BACTERIA,URINE MODERATE /HPF (None Seen)
[2022-03-26] MEDS ORDERED: cefTRIAXone 1 GM in D5W 50 ML IV ONE (15:45)
[2022-03-26] MEDS ORDERED: cefTRIAXone 1 GM VIAL ONE (16:20)
[2022-03-26] MEDS ORDERED: MEGE20TA3 PO (17:36)
[2022-03-26] MEDS ORDERED: NYST15PO2 TP (17:36)
[2022-03-26] MEDS ORDERED: DOCU-144 PO (17:36)
[2022-03-26] MEDS ORDERED: OCUVITE PO (17:36)
[2022-03-26] MEDS ORDERED: HYDR-3919 PO (17:36)
[2022-03-26] MEDS ORDERED: MULT-976 PO (17:36)
[2022-03-26] MEDS ORDERED: PRO40 PO (17:36)
[2022-03-26 20:00] VITALS: BP_SYST 132
[2022-03-26] MEDS: 0.45% NACL 1,000 ML IV SCH (20:55)
[2022-03-26] MEDS ORDERED: NALOXONE HCL 0.4 MG/ML AMP (NARCAN) IVP PRN (22:00)
[2022-03-27 01:40] VITALS: BP_SYST 129
[2022-03-27] MEDS: 0.45% NACL 1,000 ML IV SCH ×2 (03:30→23:30)
[2022-03-27] MEDS: LEVOTHYROXINE SODIUM 0.1 MG TABLET PO SCH (06:44)
[2022-03-27] MEDS ORDERED: MEGE400O5 PO (07:18)
[2022-03-27 07:40] LABS: BASOPHILS % (AUTO) 0.3 % (0.0-2.0); EOSINOPHILS # (AUTO) 0.2 K/uL (0.0-0.4); EOSINOPHILS % (AUTO) 1.8 % (0.0-4.0); HEMATOCRIT 23.8 % (36-48); LYMPHOCYTES # (AUTO) 1.3 K/uL (1.0-5.5); LYMPHOCYTES % (AUTO) 13.4 % (20.5-51.5); MEAN CORPUSCULAR VOLUME 93 fL (79.0-98.0); MONOCYTES # (AUTO) 0.4 K/uL (0.0-1.0); MONOCYTES % (AUTO) 4.6 % (1.7-9.3); NEUTROPHILS # (AUTO) 7.8 K/uL (1.8-7.7); NEUTROPHILS % (AUTO) 79.9 % (40.0-70.0); PLATELET COUNT (AUTO) 167 K/uL (130-430); RED BLOOD CELL COUNT(AUTO) 2.57 MIL/uL (4.2-6.2); RED CELL DISTRIBUTION WIDTH 20.9 % (9.0-15.0); WHITE BLOOD COUNT (AUTO) 9.8 K/uL (4.8-10.8)
[2022-03-27 08:00] VITALS: BP_SYST 126
[2022-03-27 08:17] LABS: ANION GAP 12 (5-15); CALCIUM 9.1 mg/dL (8.4-11.0); CHLORIDE 114 mmol/L (98-107); CREATININE 1.13 mg/dL (0.55-1.30); GLUCOSE 95 mg/dL (70-99); POTASSIUM 5.5 mmol/L (3.5-5.1); UREA NITROGEN, BLOOD 90 mg/dL (8-21)
[2022-03-27] MEDS: BETA-CAROTENE W-C & E/ZN/CU TABLET PO SCH (09:00)
[2022-03-27] MEDS ORDERED: [UNRECOGNIZED DRUG - OTHER] PO SCH (09:00)
[2022-03-27] MEDS ORDERED: BETA-CAROTENE W-C & E/ZN/CU TABLET PO SCH (09:00)
[2022-03-27] MEDS: NYSTATIN 15 GM TOPICAL POWDER TP SCH (09:00)
[2022-03-27] MEDS ORDERED: NON-FORMULARY MEDICATION (Cranberry Fruit (Cranberry) 425 MG) SCH (09:00)
[2022-03-27] MEDS: predniSONE 10 MG TABLET PO SCH (09:17)
[2022-03-27] MEDS: LOSARTAN POTASSIUM 50 MG TABLET (COZAAR) PO SCH ×2 (09:18→21:24)
[2022-03-27] MEDS: HYDROcodone/ACETAMIN 5-325 MG TAB (NORCO/ VICODIN) PO SCH (09:18)
[2022-03-27] MEDS: DOCUSATE SODIUM 100 MG CAPSULE PO SCH ×2 (09:19→21:26)
[2022-03-27] MEDS: ALLOPURINOL 100 MG TABLET (ZYLOPRIM) PO SCH ×2 (09:19→21:24)
[2022-03-27] MEDS: PANTOPRAZOLE SODIUM 40 MG TAB PO SCH (09:19)
[2022-03-27] MEDS: CITALOPRAM HYDROBROMIDE 20 MG TABLET PO SCH (09:19)
[2022-03-27] MEDS: MEMANTINE HCL 5 MG TABLET PO SCH ×2 (09:19→21:24)
[2022-03-27] MEDS: amLODIPine BESYLATE 10 MG TABLET PO SCH (09:20)
[2022-03-27] MEDS: MULTIVITAMINS TAB 1 TABLET PO SCH (09:21)
[2022-03-27] MEDS: ASCORBIC ACID 500 MG TABLET PO SCH ×2 (09:21→21:25)
[2022-03-27] MEDS: ATENOLOL 25 MG TABLET(TENORMIN) PO SCH (09:21)
[2022-03-27] MEDS: MEGESTROL ACETATE 400 MG/10 ML UDC PO SCH ×2 (09:22→21:24)
[2022-03-27] MEDS: APIXABAN 2.5 MG TABLET PO SCH ×2 (09:22→21:26)
[2022-03-27 14:22] VITALS: BP_SYST 105
[2022-03-27 16:43] VITALS: BP_SYST 115
[2022-03-27 20:00] VITALS: BP_SYST 118
[2022-03-27] MEDS ORDERED: ESCITALOPRAM OXALATE 10 MG TABLET PO SCH (21:00)
[2022-03-27] MEDS: ATORVASTATIN 20 MG TABLET PO SCH (21:25)
[2022-03-28 01:36] VITALS: BP_SYST 126
[2022-03-28 04:00] VITALS: BP_SYST 121
[2022-03-28] MEDS: LEVOTHYROXINE SODIUM 0.1 MG TABLET PO SCH (07:04)
[2022-03-28 08:16] LABS: ANION GAP 8 (5-15); CALCIUM 8.4 mg/dL (8.4-11.0); CHLORIDE 113 mmol/L (98-107); CREATININE 1.04 mg/dL (0.55-1.30); GLUCOSE 117 mg/dL (70-99); POTASSIUM 4.8 mmol/L (3.5-5.1); UREA NITROGEN, BLOOD 64 mg/dL (8-21)
[2022-03-28 08:30] VITALS: BP_SYST 130
[2022-03-28] MEDS: HYDROcodone/ACETAMIN 5-325 MG TAB (NORCO/ VICODIN) PO SCH (10:18)
[2022-03-28] MEDS: amLODIPine BESYLATE 10 MG TABLET PO SCH (10:21)
[2022-03-28] MEDS: predniSONE 10 MG TABLET PO SCH (10:21)
[2022-03-28] MEDS: ASCORBIC ACID 500 MG TABLET PO SCH ×2 (10:21→21:20)
[2022-03-28] MEDS: MEMANTINE HCL 5 MG TABLET PO SCH ×2 (10:21→21:18)
[2022-03-28] MEDS: MEGESTROL ACETATE 400 MG/10 ML UDC PO SCH ×2 (10:21→21:19)
[2022-03-28] MEDS: CITALOPRAM HYDROBROMIDE 20 MG TABLET PO SCH (10:21)
[2022-03-28] MEDS: ATENOLOL 25 MG TABLET(TENORMIN) PO SCH (10:22)
[2022-03-28] MEDS: MULTIVITAMINS TAB 1 TABLET PO SCH (10:22)
[2022-03-28] MEDS: LOSARTAN POTASSIUM 50 MG TABLET (COZAAR) PO SCH ×2 (10:22→21:20)
[2022-03-28] MEDS: APIXABAN 2.5 MG TABLET PO SCH ×2 (10:24→21:19)
[2022-03-28] MEDS: PANTOPRAZOLE SODIUM 40 MG TAB PO SCH (10:27)
[2022-03-28] MEDS: DOCUSATE SODIUM 100 MG CAPSULE PO SCH ×2 (10:27→21:18)
[2022-03-28] MEDS: ALLOPURINOL 100 MG TABLET (ZYLOPRIM) PO SCH ×2 (10:28→21:20)
[2022-03-28 12:00] VITALS: BP_SYST 121
[2022-03-28] MEDS: BETA-CAROTENE W-C & E/ZN/CU TABLET PO SCH (13:06)
[2022-03-28] MEDS: BALSAM PERU/CASTOR OIL 56.7 GM OINT...G. TP SCH (13:13)
[2022-03-28] MEDS: 0.45% NACL 1,000 ML IV SCH ×2 (13:17→19:30)
[2022-03-28] MEDS: HYDROcodone/ACETAMIN 5-325 MG TAB (NORCO/ VICODIN) PO PRN (15:43)
[2022-03-28 20:00] VITALS: BP_SYST 118
[2022-03-28] MEDS: ATORVASTATIN 20 MG TABLET PO SCH (21:21)
[2022-03-29 01:01] VITALS: BP_SYST 117
[2022-03-29] MEDS: LEVOTHYROXINE SODIUM 0.1 MG TABLET PO SCH (06:11)
[2022-03-29] MEDS: 0.45% NACL 1,000 ML IV SCH ×3 (06:13→20:19)
[2022-03-29 09:21] LABS: POTASSIUM 4.6 mmol/L (3.5-5.1)
[2022-03-29 09:41] LABS: ANION GAP 10 (5-15); CALCIUM 8.4 mg/dL (8.4-11.0); CHLORIDE 110 mmol/L (98-107); CREATININE 0.95 mg/dL (0.55-1.30); GLUCOSE 89 mg/dL (70-99); UREA NITROGEN, BLOOD 38 mg/dL (8-21)
[2022-03-29] MEDS: MULTIVITAMINS TAB 1 TABLET PO SCH (09:53)
[2022-03-29] MEDS: PANTOPRAZOLE SODIUM 40 MG TAB PO SCH (09:53)
[2022-03-29] MEDS: HYDROcodone/ACETAMIN 5-325 MG TAB (NORCO/ VICODIN) PO PRN (09:53)
[2022-03-29] MEDS: CITALOPRAM HYDROBROMIDE 20 MG TABLET PO SCH (09:53)
[2022-03-29] MEDS: ATENOLOL 25 MG TABLET(TENORMIN) PO SCH (09:54)
[2022-03-29] MEDS: LOSARTAN POTASSIUM 50 MG TABLET (COZAAR) PO SCH ×2 (09:54→20:51)
[2022-03-29] MEDS: ASCORBIC ACID 500 MG TABLET PO SCH ×2 (09:54→20:46)
[2022-03-29] MEDS: predniSONE 10 MG TABLET PO SCH (09:55)
[2022-03-29] MEDS: DOCUSATE SODIUM 100 MG CAPSULE PO SCH ×2 (09:55→20:46)
[2022-03-29] MEDS: ALLOPURINOL 100 MG TABLET (ZYLOPRIM) PO SCH ×2 (09:55→20:48)
[2022-03-29] MEDS: amLODIPine BESYLATE 10 MG TABLET PO SCH (09:56)
[2022-03-29] MEDS: MEMANTINE HCL 5 MG TABLET PO SCH ×2 (09:56→20:47)
[2022-03-29] MEDS: MEGESTROL ACETATE 400 MG/10 ML UDC PO SCH ×2 (09:57→20:47)
[2022-03-29] MEDS: NYSTATIN 15 GM TOPICAL POWDER TP SCH ×2 (09:57→11:28)
[2022-03-29] MEDS: BALSAM PERU/CASTOR OIL 56.7 GM OINT...G. TP SCH (09:58)
[2022-03-29] MEDS: APIXABAN 2.5 MG TABLET PO SCH ×2 (09:58→20:48)
[2022-03-29] MEDS: HYDROcodone/ACETAMIN 5-325 MG TAB (NORCO/ VICODIN) PO SCH (10:00)
[2022-03-29 10:32] LABS: TOTAL IRON BIND. CAPACITY 160 ug/dL (250-450)
[2022-03-29] MEDS: BETA-CAROTENE W-C & E/ZN/CU TABLET PO SCH (11:27)
[2022-03-29 12:00] VITALS: BP_SYST 106
[2022-03-29 16:26] VITALS: BP_SYST 118
[2022-03-29 20:00] VITALS: BP_SYST 125
[2022-03-29] MEDS: ATORVASTATIN 20 MG TABLET PO SCH (20:47)
[2022-03-30 00:30] VITALS: BP_SYST 124
[2022-03-30 04:15] VITALS: BP_SYST 114
[2022-03-30] MEDS: 0.45% NACL 1,000 ML IV SCH ×2 (06:03→16:44)
[2022-03-30] MEDS: LEVOTHYROXINE SODIUM 0.1 MG TABLET PO SCH (06:06)
[2022-03-30 08:00] VITALS: BP_SYST 129
[2022-03-30 08:06] LABS: FOLATE (FOLIC ACID) >20.0 ng/mL (>3.0)
[2022-03-30 09:02] LABS: ANION GAP 8 (5-15); CALCIUM 7.9 mg/dL (8.4-11.0); CHLORIDE 109 mmol/L (98-107); CREATININE 1.07 mg/dL (0.55-1.30); GLUCOSE 100 mg/dL (70-99); POTASSIUM 4.8 mmol/L (3.5-5.1); UREA NITROGEN, BLOOD 53 mg/dL (8-21)
[2022-03-30] MEDS: HYDROcodone/ACETAMIN 5-325 MG TAB (NORCO/ VICODIN) PO SCH (10:03)
[2022-03-30] MEDS: MEMANTINE HCL 5 MG TABLET PO SCH ×2 (10:04→21:03)
[2022-03-30] MEDS: PANTOPRAZOLE SODIUM 40 MG TAB PO SCH (10:04)
[2022-03-30] MEDS: DOCUSATE SODIUM 100 MG CAPSULE PO SCH ×2 (10:07→21:03)
[2022-03-30] MEDS: APIXABAN 2.5 MG TABLET PO SCH ×2 (10:08→21:05)
[2022-03-30] MEDS: ASCORBIC ACID 500 MG TABLET PO SCH ×2 (10:08→21:03)
[2022-03-30] MEDS: LOSARTAN POTASSIUM 50 MG TABLET (COZAAR) PO SCH ×2 (10:08→21:04)
[2022-03-30] MEDS: ALLOPURINOL 100 MG TABLET (ZYLOPRIM) PO SCH ×2 (10:09→21:04)
[2022-03-30] MEDS: amLODIPine BESYLATE 10 MG TABLET PO SCH (10:09)
[2022-03-30] MEDS: ATENOLOL 25 MG TABLET(TENORMIN) PO SCH (10:10)
[2022-03-30] MEDS: predniSONE 10 MG TABLET PO SCH (10:10)
[2022-03-30] MEDS: MEGESTROL ACETATE 400 MG/10 ML UDC PO SCH ×2 (10:11→21:03)
[2022-03-30] MEDS: CITALOPRAM HYDROBROMIDE 20 MG TABLET PO SCH (10:11)
[2022-03-30] MEDS: MULTIVITAMINS TAB 1 TABLET PO SCH (10:11)
[2022-03-30] MEDS: NYSTATIN 15 GM TOPICAL POWDER TP SCH (10:13)
[2022-03-30] MEDS: BALSAM PERU/CASTOR OIL 56.7 GM OINT...G. TP SCH (10:14)
[2022-03-30] MEDS: BETA-CAROTENE W-C & E/ZN/CU TABLET PO SCH (11:25)
[2022-03-30 11:30] VITALS: BP_SYST 126
[2022-03-30 16:30] VITALS: BP_SYST 135
[2022-03-30] MEDS: cefTRIAXone 1 GM in D5W 50 ML IV SCH (18:24)
[2022-03-30 20:00] VITALS: BP_SYST 120
[2022-03-30] MEDS: ATORVASTATIN 20 MG TABLET PO SCH (21:03)
[2022-03-31] VITALS: BP_SYST 140
[2022-03-31] MEDS: 0.45% NACL 1,000 ML IV SCH (05:36)
[2022-03-31] MEDS: LEVOTHYROXINE SODIUM 0.1 MG TABLET PO SCH (06:26)
[2022-03-31 08:00] VITALS: BP_SYST 129
[2022-03-31] MEDS: BETA-CAROTENE W-C & E/ZN/CU TABLET PO SCH (08:10)
[2022-03-31] MEDS: MEGESTROL ACETATE 400 MG/10 ML UDC PO SCH ×2 (08:10→20:11)
[2022-03-31] MEDS: MULTIVITAMINS TAB 1 TABLET PO SCH (08:10)
[2022-03-31] MEDS: ALLOPURINOL 100 MG TABLET (ZYLOPRIM) PO SCH ×2 (08:10→20:11)
[2022-03-31] MEDS: amLODIPine BESYLATE 10 MG TABLET PO SCH (08:11)
[2022-03-31] MEDS: ATENOLOL 25 MG TABLET(TENORMIN) PO SCH (08:12)
[2022-03-31] MEDS: HYDROcodone/ACETAMIN 5-325 MG TAB (NORCO/ VICODIN) PO SCH (08:12)
[2022-03-31] MEDS: CITALOPRAM HYDROBROMIDE 20 MG TABLET PO SCH (08:13)
[2022-03-31] MEDS: ASCORBIC ACID 500 MG TABLET PO SCH ×2 (08:13→20:11)
[2022-03-31] MEDS: LOSARTAN POTASSIUM 50 MG TABLET (COZAAR) PO SCH ×2 (08:13→20:11)
[2022-03-31] MEDS: APIXABAN 2.5 MG TABLET PO SCH ×2 (08:14→20:12)
[2022-03-31] MEDS: PANTOPRAZOLE SODIUM 40 MG TAB PO SCH (08:14)
[2022-03-31] MEDS: predniSONE 10 MG TABLET PO SCH (08:14)
[2022-03-31] MEDS: MEMANTINE HCL 5 MG TABLET PO SCH ×2 (08:14→20:11)
[2022-03-31] MEDS: DOCUSATE SODIUM 100 MG CAPSULE PO SCH ×2 (08:14→20:11)
[2022-03-31] MEDS: NYSTATIN 15 GM TOPICAL POWDER TP SCH (08:15)
[2022-03-31] MEDS: BALSAM PERU/CASTOR OIL 56.7 GM OINT...G. TP SCH (08:15)
[2022-03-31 09:45] LABS: ANION GAP 8 (5-15); CALCIUM 8.1 mg/dL (8.4-11.0); CHLORIDE 111 mmol/L (98-107); CREATININE 1.06 mg/dL (0.55-1.30); GLUCOSE 93 mg/dL (70-99); POTASSIUM 4.8 mmol/L (3.5-5.1); UREA NITROGEN, BLOOD 42 mg/dL (8-21)
[2022-03-31 12:00] VITALS: BP_SYST 116
[2022-03-31 16:00] VITALS: BP_SYST 124
[2022-03-31] MEDS: cefTRIAXone 1 GM in D5W 50 ML IV SCH (17:29)
[2022-03-31 20:00] VITALS: BP_SYST 124
[2022-03-31] MEDS: ATORVASTATIN 20 MG TABLET PO SCH (20:11)
[2022-04-01] VITALS: BP_SYST 139
[2022-04-01] MEDS: 0.45% NACL 1,000 ML IV SCH ×3 (03:26→13:30)
[2022-04-01] MEDS: LEVOTHYROXINE SODIUM 0.1 MG TABLET PO SCH (06:56)
[2022-04-01 08:00] VITALS: BP_SYST 134
[2022-04-01 08:51] LABS: ANION GAP 12 (5-15); CALCIUM 8.7 mg/dL (8.4-11.0); CHLORIDE 111 mmol/L (98-107); CREATININE 0.92 mg/dL (0.55-1.30); GLUCOSE 123 mg/dL (70-99); POTASSIUM 4.8 mmol/L (3.5-5.1); UREA NITROGEN, BLOOD 43 mg/dL (8-21)
[2022-04-01] MEDS: BETA-CAROTENE W-C & E/ZN/CU TABLET PO SCH (09:00)
[2022-04-01] MEDS: HYDROcodone/ACETAMIN 5-325 MG TAB (NORCO/ VICODIN) PO SCH (09:51)
[2022-04-01] MEDS: amLODIPine BESYLATE 10 MG TABLET PO SCH (09:52)
[2022-04-01] MEDS: PANTOPRAZOLE SODIUM 40 MG TAB PO SCH (09:53)
[2022-04-01] MEDS: MULTIVITAMINS TAB 1 TABLET PO SCH (09:53)
[2022-04-01] MEDS: CITALOPRAM HYDROBROMIDE 20 MG TABLET PO SCH (09:53)
[2022-04-01] MEDS: MEMANTINE HCL 5 MG TABLET PO SCH ×2 (09:53→21:43)
[2022-04-01] MEDS: DOCUSATE SODIUM 100 MG CAPSULE PO SCH ×2 (09:53→21:43)
[2022-04-01] MEDS: ASCORBIC ACID 500 MG TABLET PO SCH ×2 (09:54→21:44)
[2022-04-01] MEDS: LOSARTAN POTASSIUM 50 MG TABLET (COZAAR) PO SCH ×2 (09:54→21:44)
[2022-04-01] MEDS: predniSONE 10 MG TABLET PO SCH (09:54)
[2022-04-01] MEDS: APIXABAN 2.5 MG TABLET PO SCH ×2 (09:55→21:47)
[2022-04-01] MEDS: ATENOLOL 25 MG TABLET(TENORMIN) PO SCH (09:55)
[2022-04-01] MEDS: ALLOPURINOL 100 MG TABLET (ZYLOPRIM) PO SCH ×2 (09:55→21:43)
[2022-04-01] MEDS: MEGESTROL ACETATE 400 MG/10 ML UDC PO SCH ×2 (10:02→21:44)
[2022-04-01] MEDS: BALSAM PERU/CASTOR OIL 56.7 GM OINT...G. TP SCH (10:02)
[2022-04-01] MEDS: NYSTATIN 15 GM TOPICAL POWDER TP SCH (10:02)
[2022-04-01 12:00] VITALS: BP_SYST 134
[2022-04-01 16:00] VITALS: BP_SYST 128
[2022-04-01 17:59] VITALS: BP_SYST 134
[2022-04-01] MEDS: cefTRIAXone 1 GM in D5W 50 ML IV SCH (18:52)
[2022-04-01 20:04] VITALS: BP_SYST 141
[2022-04-01] MEDS: ATORVASTATIN 20 MG TABLET PO SCH (21:43)
[2022-04-02 01:36] VITALS: BP_SYST 141
[2022-04-02 08:55] LABS: FERRITIN 403 ng/mL (15-150)
== END 2022-04-02 00:08 | DRG 70 ==
LOC: SED 13:01 → STU 17:19
PROVIDERS: ADMIT Family Medicine; ATTEND Family Medicine
DX: G93.41 Metabolic encephalopathy (principal); E43 Unspecified severe protein-calorie malnutrition; L89.154 Pressure ulcer of sacral region, stage 4; N17.9 Acute kidney failure, unspecified; N39.0 Urinary tract infection, site not specified; R65.10 Systemic inflammatory response syndrome (SIRS) of non-infectious origin without acute organ dysfunction; E86.0 Dehydration; I10 Essential (primary) hypertension; I48.0 Paroxysmal atrial fibrillation; F03.90 Unspecified dementia, unspecified severity, without behavioral disturbance, psychotic disturbance, mood disturbance, and anxiety; D64.9 Anemia, unspecified; E03.9 Hypothyroidism, unspecified; Z20.822 Contact with and (suspected) exposure to COVID-19; Z68.22 Body mass index [BMI] 22.0-22.9, adult
CPT/HCPCS: 36415; 70450-TC; 71045; 76376; 80048; 80053; 80307; 81000; 82140; 82607; 82728; 82746; 82962; 83540; 83550; 83605; 84439; 84443; 84484; 85025; 85610-TC; 85730-TC; 87040; 87081; 87086; 93005; 96361; 96365; 96375; 97163-GP; 99291; G0378; G0482; J0696; J2270; J2405; J7060; J7512